=== PATIENT | female | born 1935 | race Two or more races ===

== ENCOUNTER 2019-08-18 07:28 | Outpatient (CLI) | payer OTHER | END 2019-08-18 08:00 | disposition home or self-care (01) | LOC: NUCLEAR 07:28 | DX: I11.9 Hypertensive heart disease without heart failure (principal); I20.8 Other forms of angina pectoris; E78.00 Pure hypercholesterolemia, unspecified; E11.9 Type 2 diabetes mellitus without complications | CPT/HCPCS: 78452; 93017; A9500; J0153 ==